=== PATIENT | female | born 1955 | race Caucasian/White ===

== ENCOUNTER → 2021-04-07 12:44 | Outpatient (CLI) | payer MEDICARE, OTHER, SELFPAY ==
[2021-03-17 15:09] VITALS: BMI 23.9
--- NOTE | 2021-04-07 12:48 | ECHOD_ITS ---
Reason For Study: CHEST PAIN Procedure This was a 2D Doppler, Color Flow transthoracic echocardiogram. Exam performed in department. Left Ventricle Normal LV size. Left ventricular systolic function is normal. The estimated ejection fraction is 60 %. Normal diastology for age. No regional wall motion abnormalities noted. Right Ventricle Normal RV size. Normal systolic function. Atria Normal left atrium. Normal right atrium. Mitral Valve Normal mitral valve. Tricuspid Valve Normal tricuspid valve. Mild tricuspid valve insufficiency. Pulmonary artery systolic pressure is 30 mmHg. Aortic Valve Normal aortic valve. Trisinus/trileaflet aortic valve. Mild (1+) eccentric aortic valve insufficiency. Pulmonic Valve Normal pulmonic valve. Great Vessels Normal aortic root. The pulmonary artery is normal size. Normal inferior vena cava. Pericardium/Pleural No pericardial effusion. MMode/2D Measurements & Calculations LVIDd: 5.1 cm IVSd: 0.55 cm Ao root diam: 3.5 cm LVIDs: 3.3 cm LVPWd: 0.58 cm RVDd: 3.5 cm FS: 36.2 % LAV(MOD-sp4): 49.2 ml LVAd ap4: 25.0 cm2 LVAd ap2: 31.2 cm2 LVLd ap4: 7.0 cm LVLd ap2: 7.3 cm EDV(MOD-sp4): 74.8 ml EDV(MOD-sp2): 116.9 ml EDV(sp4-el): 76.4 ml EDV(sp2-el): 112.8 ml LVAs ap4: 15.2 cm2 LVAs ap2: 19.3 cm2 LVLs ap4: 5.8 cm LVLs ap2: 6.4 cm ESV(MOD-sp4): 33.7 ml ESV(MOD-sp2): 47.9 ml ESV(sp4-el): 33.6 ml ESV(sp2-el): 49.2 ml EF(MOD-sp4): 54.9 % EF(MOD-sp2): 59.0 % EF(sp4-el): 56.0 % SV(MOD-sp4): 41.1 ml SV(MOD-sp2): 69.0 ml SV(sp4-el): 42.8 ml LA dimension(2D): 4.1 cm LA A4 area: 18.1 cm2 RA A4 area: 15.2 cm2 Time Measurements MV dec time: 0.24 sec Doppler Measurements & Calculations MV E max mamadou: 71.6 cm/sec Lat Peak E' Mamadou: 9.2 cm/sec Med Peak E' Mamadou: 5.9 cm/sec MV A max mamadou: 59.9 cm/sec E/E' lat: 7.8 E/E' med: 12.1 MV E/A: 1.2 Ao V2 max: 145.6 cm/sec AI max mamadou: 426.3 cm/sec LV V1 max: 123.4 cm/sec Ao max P.5 mmHg AI max P.7 mmHg LV V1 max P.1 mmHg AI dec slope: 153.8 cm/sec2 AI P1/2t: 811.9 msec TR max mamadou: 258.9 cm/sec TR max P.8 mmHg ECHO/Echo Complete Interpretation Summary Normal LV size. Left ventricular systolic function is normal. The estimated ejection fraction is 60 %. Mild (1+) eccentric aortic valve insufficiency. Structurally normal valves. Ordering Physician: Mat Ingram Referring Physician: ANTWAN GALEAS Performed By: Mary Carmen Patricio, RDCS, RVT
--- NOTE | 2021-04-07 13:49 | CT_ITS ---
STUDY: CT CHEST WITHOUT CONTRAST REASON FOR EXAM: Female, 66 years old. CAD RADIATION DOSAGE (If Supplied By Facility): CTDIvol = ( 12.19 ) mGy, DLP = ( 195.04 ) mGycm TECHNIQUE: Transaxial imaging was performed without the administration of intravenous contrast material. Overread examination. Individualized dose optimization techniques were used for this CT. COMPARISON: None. FINDINGS: The lungs are normal. There is no demonstrated pleural abnormality. There are calcifications of the coronary arteries. There are multiple small lymph nodes within the mediastinum, which are normal in size and morphology most compatible with reactive lymph hyperplasia. Normal hilar regions. Normal unenhanced pulmonary arteries. Normal aorta arch and descending thoracic aorta. Normal osseous structures. There is no demonstrated abnormality of the visualized upper abdomen. CT/Limited Chest CT w/CCTA IMPRESSION: Coronary calcification. Electronically Signed: Anurag Erickson MD at 14:40 EDT , Service support ,
[2021-04-07 13:51] VITALS: BP 133/77; PULSE 54; RESP 16; TEMP 36.6; O2SAT 100; BMI 23.9
--- NOTE | 2021-04-07 18:19 | CA.SCORE ---
Calcium Scoring Coronary Calcium Scoring: High-resolution Computed Tomographic imaging of the chest was performed on [04/07/2021], with particular attention paid to the coronary arteries. Images from the examination were analyzed for the presence and extent of coronary artery calcification , using coronary calcium quantification software. The patient tolerated the procedure well and there were no complications. The results of the coronary calcification analysis are provided below. Left main coronary artery score 0 Left anterior descending artery score of 53.8 Left circumflex artery score 0 Right coronary artery score 0 Total Agatston score 53.8. Percentile ranking between 50th and 75th percentile. The above is suggestive of mild plaque burden. A full evaluation of cardiac risk should include assessment of all conventional risk factors and the scores and percentile rankings reported hearing should be evaluated in this context. Calcium Scoring Interpretation: 0 No identifiable atherosclerotic plaque. Very low cardiovascular disease risk. <5% chance of presence coronary artery disease A Negative Examination 1-10 Minimal Plaque burden. Significant coronary artery disease very unlikely. 11-100 Mild plaque burden. Likely mild or minimal coronary atherosclerosis. 101-400 Moderate plaque burden Moderate non-obstructive coronary artery disease highly likely. Over 400 Extensive plaque burden. High likelihood of at least one significant coronary stenosis (>50% diameter)
== END ==
PROVIDERS: PCP Student in an Organized Health Care Education/Training Program; Referring Provider Internal Medicine Cardiovascular Disease; Visit Provider Internal Medicine Cardiovascular Disease
DX: I25.10 Atherosclerotic heart disease of native coronary artery without angina pectoris (principal)
CPT/HCPCS: 75571; 76380; 93306; A4216